=== PATIENT | male | born 1965 | race American Indian/Alaskan Native ===

== ENCOUNTER 2016-06-13 02:35 | Inpatient (IN) | payer BC ==
[2016-06-13 03:57] LABS: Anion Gap 16 mmol/L; BUN/Creatinine Ratio 14.54; Blood Urea Nitrogen 16 mg/dL (9-20); Carbon Dioxide 27 mmol/L (22-30); Chloride 98.3 mmol/L (98-107); Glucose 121 mg/dL (75-100); Potassium 3.8 mmol/L (3.6-5.0); Sodium 137 mmol/L (137-145)
[2016-06-13 04:14] LABS: Basophils % (Auto) 0.8 % (0.0-1.8); Eosinophils % (Auto) 3.5 % (0.0-4.3); Hemoglobin 14.3 gm/dl (11.8-15.2); Mean Corpuscular HGB Conc 32 % (32-34); Mean Corpuscular Hemoglobin 26 pg (28-32); Mean Corpuscular Volume 83 fl (84-94); Platelet Count 190 K/mm3 (140-440); Red Blood Count 5.42 M/mm3 (3.65-5.03); Red Cell Distribution Width 14.8 % (13.2-15.2); White Blood Count 7.1 K/mm3 (4.5-11.0)
[2016-06-13] MEDS ORDERED: NITRO-BID 2% TP ONE (08:27)
[2016-06-13] MEDS ORDERED: ASPIRIN PO ONE (08:27)
[2016-06-13] MEDS ORDERED: LOPRESSOR IV ONE (08:27)
[2016-06-13] MEDS ORDERED: NACL ONE (08:58)
--- NOTE | 2016-06-13 09:43 | Cat Scan Report ---
CT angiography of the chest with 3-D reconstructed images. Findings: There is a round circumscribed hypodensity in the right lobe of the thyroid measuring 1 cm in diameter. A 5 mm round hypodensity is seen in the left lobe of the thyroid. There is a roughly 1.9 cm opacity in the left upper lobe with no air bronchogram. A subcentimeter nodular component is seen at the medial margin of this density. Otherwise the lungs are clear. The multiple nonenlarged nodes are seen in the anterior mediastinum. There is no pleural fluid. Bilateral small nodes are seen in the axilla. On the images which include a portion of the upper abdomen, there is a somewhat rounded hypodensity in the posterior aspect of the right lobe of the liver with inhomogeneous enhancement measuring 2.3 cm in diameter. Impression: 1. No evidence of pulmonary emboli. 2. Left upper lobe consolidation with small nodule, noncalcified. This could represent a malignant or benign inflammatory process. Imaging followup until clear is recommended unless biopsy is indicated on a clinical basis. 3. Bilateral small thyroid nodules. 4. Inhomogeneous enhancing mass in the right lobe of the liver. This is nonspecific, but could represent a hemangioma.
--- NOTE | 2016-06-13 09:47 | Admit Criteria Form ---
Admission Criteria Documentation: CHEST PAIN Clinical Indications for Admission to Inpatient Care (Place 'X' for any and all applicable criteria): Admission is indicated for chest pain and ANY ONE of the following(1)(2)(3)(4)(5 ): [ ]I. Angina with acute coronary syndrome (Also use Myocardial Infarction or Angina guideline) [ ]II. Hemodynamic instability [ ]III. Angina needing acute intervention as indicated by ALL of the following( 11)(12): [ ]a) Unstable angina is present as indicated by angina that is ANY ONE of the following: [ ]i) New onset [ ]ii) Nocturnal [ ]iii) Prolonged at rest [ ]iv) Progressive [ ]b) Angina warrants acute intervention as indicated by ANY ONE of the following: [ ]i) Recurrent angina (e.g, not responding as previously to treatment) [ ]ii) Angina at rest or with low-level activities despite initial medical therapy [ ]iii) New or presumably new ST-segment depression on ECG [ ]iv) Signs or symptoms of heart failure (eg, dyspnea, pulmonary edema) [ ]v) New or worsening mitral regurgitation [ ]vi) Hemodynamic instability [ ]vii) Dangerous arrhythmia (eg, sustained ventricular tachycardia) [ ]viii) History of percutaneous coronary intervention within 6 months [ ]ix) History of coronary artery bypass graft surgery [ ]x) MANOJ risk score of 2 or greater[A] [ ]xi) History of Diabetes(14) [ ]xii) High-risk cardiac ischemia findings on noninvasive testing (e.g, echocardiogram, treadmill testing, nuclear scan) [ ]xiii) Chronic renal insufficiency (ie, estimated GFR less than 60 mL/min/1.732m) [ ]xiv) Left ventricular ejection fraction less than 40% [ ]IV. Evidence of TX (eg, cardiac biomarkers positive, ST-segment elevation on ECG) also use Myocardial Infarction Criteria Form. [ ]V. Pulmonary edema [ ]. Respiratory distress [ ]VII. Chest pain indicative of serious diagnosis other than coronary artery disease (eg, aortic dissection) [ ]VIII. Contraindications and/or Inappropriate clinical situations for Observational Care in patients with Chest Pain, when ANY ONE of the following is required: [ ]a) Patient with risk factor for pulmonary embolism, acute coronary syndrome and myocardial infarction (18) [ ]b) Patient with Pulmonary embolism require an average LOS of 4.3 days, therefore emergency department observation management is inappropriate 18,23 [ ]c) Painful condition/s in the elderly, have the highest rate of recidivism after emergency department observation management (10.8%) 20,21,22 [ ]d) Elevated cardiac biomarker requires intensive and exhaustive care (19) [X ]IX. General contraindications and/or Inappropriate clinical situations for Observational Care in patients with Chest Pain, when ANY ONE of the following is required: [ X]a) Prediction of prolongation of LOS based on ANY ONE of the following may be considered as a contraindication for observational care 2, 3, 4, 5, 6, 7, 8, 9, 10, 11 [ ]i) Age > 65 yrs. [X ]ii) Patient arriving by ambulance [ ]iii) Patient with high acuity [ ]iv) Patient requiring vital sign monitoring [ ]v) Patient on IV medication [ ]b) Systolic blood pressures 180mmHg 3,12 [ ]c) Patient with altered mental status including delirium and other alteration of consciousness, (3) [ ]d) Patient whose discharge disposition will be to a fpc home or rehabilitation home should not be managed in Emergency Department Observation Unit. CMS rule requires 3 days hospital stay before such placement. 3,13 [ ]e) Patient with failure to thrive due to broad array of etiologies 3,16,17 [ ]f) Inability to ambulate 3,14 Extended stay beyond goal length of stay may be needed for (1)(28): [ ]a) Specific condition diagnosed after evaluation (eg, pulmonary embolism, aortic dissection) [ ]b) Unstable angina [ ]c) Continued suspicion of acute coronary syndrome with inability to complete needed cardiac evaluation (eg, patient clinically unable to undergo stress testing) [ ]d) Myocardial infarction (Contents from ANGINA and CHEST PAIN clinical indications for admission to inpatient care have been integrated in this form) The original [facility] content created by [employer] has been revised. The portions of the content which have been revised are identified through the use of italic text or in bold, and [facility] [employer] has neither reviewed nor approved the modified material. All other unmodified content is copyright [facility]. Please see references footnoted in the original [facility] [employer] edition 2016 Admission Criteria Met: Yes
--- NOTE | 2016-06-13 09:52 | XRay Report ---
Chest 2 views: History: Chest pain. Findings: Normal cardiomediastinal silhouette. Trachea is midline. No consolidation, pneumothorax or pleural effusion. Impression: No acute cardiopulmonary findings.
--- NOTE | 2016-06-13 10:43 | Emergency Department Report ---
ED Chest Pain HPI - General Chief Complaint: Chest Pain Stated Complaint: CHEST PAIN Time Seen by Provider: 06/13/16 08:08 Source: patient, EMS Mode of arrival: Ambulatory Limitations: No Limitations - History of Present Illness MD Complaint: chest pain -: Gradual Pain Location: substernal Pain Radiation: RUE Severity: moderate Severity scale (0 -10): 4 Quality: tightness Consistency: intermittent Improves With: nothing Worsens With: nothing re: dyspnea. denies: nausea, vomting, diaphoresis Other Symptoms: denies: cough, fever, syncope Treatments Prior to Arrival: none Aspirin use within the Past 7 Days: (1) Yes - Related Data Home Medications Medication Instructions Recorded Confirmed Last Taken Hydrochlorothiazide [Hctz] 12.5 mg PO QDAY 06/13/16 06/13/16 06/12/16 Lisinopril [Zestril TAB] 10 mg PO QDAY 06/13/16 06/13/16 06/12/16 Allergies Allergy/AdvReac Type Severity Reaction Status Date / Time No Known Allergies Allergy Verified 06/13/16 02:51 MANOJ score - Manoj Score Age > 65: (0) No Aspirin use within the Past 7 Days: (1) Yes 3 or more CAD Risk Factors: (0) No 2 or more Angina events in past 24 hrs: (1) Yes Known CAD with more than 50% Stenosis: (0) No Elevated Cardiac Markers: (0) No ST Deviation Greater than 0.5mm: (0) No MANOJ Score: 2 ED Review of Systems ROS: Stated complaint: CHEST PAIN Other details as noted in HPI Constitutional: denies: chills, fever Eyes: denies: eye pain, eye discharge, vision change ENT: denies: ear pain, throat pain Respiratory: denies: cough, shortness of breath, wheezing Cardiovascular: denies: chest pain, palpitations Endocrine: no symptoms reported Gastrointestinal: denies: abdominal pain, nausea, diarrhea Genitourinary: denies: urgency, dysuria Musculoskeletal: denies: back pain, joint swelling, arthralgia Skin: denies: rash, lesions Neurological: denies: headache, weakness, paresthesias Psychiatric: denies: anxiety, depression Hematological/Lymphatic: denies: easy bleeding, easy bruising ED Past Medical Hx - Past Medical History Previous Medical History?: Yes Hx Hypertension: Yes - Surgical History Past Surgical History?: No - Social History Smoking Status: Never Smoker Substance Use Type: Alcohol - Medications Home Medications: Home Medications Medication Instructions Recorded Confirmed Last Taken Type Hydrochlorothiazide [Hctz] 12.5 mg PO QDAY 06/13/16 06/13/16 06/12/16 History Lisinopril [Zestril TAB] 10 mg PO QDAY 06/13/16 06/13/16 06/12/16 History ED Physical Exam - General Limitations: No Limitations General appearance: alert, in no apparent distress - Head Head exam: Present: atraumatic, normocephalic - ENT ENT exam: Present: mucous membranes moist - Neck Neck exam: Present: normal inspection - Respiratory Respiratory exam: Present: normal lung sounds bilaterally. Absent: respiratory distress - Cardiovascular Cardiovascular Exam: Present: regular rate, normal rhythm. Absent: systolic murmur, diastolic murmur, rubs, gallop - GI/Abdominal GI/Abdominal exam: Present: soft, normal bowel sounds - Extremities Exam Extremities exam: Present: normal inspection - Back Exam Back exam: Present: normal inspection - Skin Skin exam: Present: warm, dry, intact, normal color. Absent: rash ED Course Vital Signs 06/13/16 06/13/16 06/13/16 02:51 08:03 08:47 Temperature 98.5 F Pulse Rate 82 85 83 Respiratory 18 24 20 Rate Blood Pressure Blood Pressure 151/103 136/88 125/83 [Right] O2 Sat by Pulse 100 96 96 Oximetry 06/13/16 06/13/16 06/13/16 08:48 09:05 09:53 Temperature Pulse Rate 83 75 73 Respiratory 22 Rate Blood Pressure 125/83 125/69 120/70 Blood Pressure [Right] O2 Sat by Pulse 94 Oximetry 06/13/16 06/13/16 06/13/16 10:00 11:00 12:00 Temperature Pulse Rate 72 92 H 76 Respiratory 27 H 17 19 Rate Blood Pressure 116/59 112/61 102/66 Blood Pressure [Right] O2 Sat by Pulse 90 100 93 Oximetry 06/13/16 06/13/16 06/13/16 13:00 13:30 14:00 Temperature Pulse Rate 67 75 74 Respiratory 19 18 22 Rate Blood Pressure 103/44 110/72 119/65 Blood Pressure [Right] O2 Sat by Pulse 89 94 92 Oximetry ED Medical Decision Making - Lab Data Result diagrams: 06/13/16 03:25 06/13/16 03:25 - EKG Data EKG shows normal: sinus rhythm Rate: normal - EKG Data When compared to previous EKG there are: no significant change Interpretation: no acute changes - Radiology Data chest ct and cxr negative - Medical Decision Making talk to hospitalist about admitting this patient and get him stress inpatient, doing well , no pain at this time. workup negative so far will need risk stratification as inpatient. likely stress test / enzymes x 3 sets all negative . Critical care time in (mins) excluding proc time.: 35 Critical care attestation.: If time is entered above; I have spent that time in minutes in the direct care of this critically ill patient, excluding procedure time. Critical Care Time: 35 ED Disposition Clinical Impression: Chest pain Disposition: OP ADMITTED IP TO THIS HOSP Is pt being admited?: Yes Does the pt Need Aspirin: Yes Condition: Stable Time of Disposition: 10:42
[2016-06-13] MEDS ORDERED: ZOFRAN IV PRN (12:30)
[2016-06-13] MEDS ORDERED: TYLENOL PO PRN (12:30)
[2016-06-13] MEDS ORDERED: MORPHINE IV PRN (12:30)
[2016-06-13] MEDS ORDERED: MILK OF MAGNESIA PO PRN (12:30)
[2016-06-13] MEDS ORDERED: DULCOLAX PR PRN (12:30)
[2016-06-13] MEDS ORDERED: SODIUM CHLORIDE FLUSH SYRINGE 10 ML IV PRN (12:30)
--- NOTE | 2016-06-13 12:42 | History and Physical Report ---
History of Present Illness Date of admission: 06/13/16 11:48 Chief complaint: chest pain History of present illness: 50m w pmh of htn who presents with CP x 1 day, chest pain. Which is dull subSternal, 4 out of 10, radiates to his right arm. Not associated with exertion or rest. Not associated with eating. He denies having previous episodes of chest pain in the past. 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[employer]) Family history: no significant family history Medications and Allergies Allergies Allergy/AdvReac Type Severity Reaction Status Date / Time No Known Allergies Allergy Verified 06/13/16 02:51 Home Medications Medication Instructions Recorded Confirmed Last Taken Type Hydrochlorothiazide [Hctz] 12.5 mg PO QDAY 06/13/16 06/13/16 06/12/16 History Lisinopril [Zestril TAB] 10 mg PO QDAY 06/13/16 06/13/16 06/12/16 History Active Meds: Active Medications Acetaminophen (Tylenol) 650 mg PO Q4H PRN PRN Reason: Pain MILD(1-3)/Fever >100.5/[place] Aspirin (Ecotrin) 325 mg PO QDAY CHRISTEN Bisacodyl (Dulcolax) 10 mg [place] QDAY PRN PRN Reason: Constipation unrelieved by MOM Enoxaparin Sodium (Lovenox) 40 mg SUB-Q QDAY CHRISTEN Hydrochlorothiazide (Hctz) 12.5 mg PO QDAY CHRISTEN Lisinopril (Zestril) 10 mg PO QDAY CHRISTEN Magnesium Hydroxide (Milk Of Magnesia) 30 ml PO Q4H PRN PRN Reason: Constipation Morphine Sulfate (Morphine) 2 mg IV Q4H PRN PRN Reason: Pain, Moderate (4-6) Ondansetron HCl (Zofran) 4 mg IV Q8H PRN PRN Reason: N/V unrelieved by Reglan Sodium Chloride (Sodium Chloride Flush Syringe 10 Ml) 10 ml IV PRN PRN PRN Reason: LINE FLUSH Review of Systems All systems: negative (as stated in HPI) Exam - Constitutional Vitals: Temp Pulse Resp BP Pulse Ox 98.5 F 92 H 17 112/61 100 06/13/16 02:51 06/13/16 11:00 06/13/16 11:00 06/13/16 11:00 06/13/16 11:00 General appearance: Present: no acute distress, well-nourished - EENT Eyes: Present: PERRL ENT: hearing intact, clear oral mucosa - Neck Neck: Present: supple, normal ROM - Respiratory Respiratory effort: normal Respiratory: bilateral: CTA - Cardiovascular Heart Sounds: Present: S1 & S2. Absent: rub, click - Extremities Extremities: pulses symmetrical, No edema Peripheral Pulses: within normal limits - Abdominal General gastrointestinal: Present: soft, non-tender, non-distended, normal bowel sounds Male genitourinary: Present: normal - Integumentary Integumentary: Present: clear, warm, dry - Musculoskeletal Musculoskeletal: gait normal, strength equal bilaterally - Psychiatric Psychiatric: appropriate mood/affect, intact judgment & insight - Neurologic Neurologic: CNII-XII intact, moves all extremities Results - Labs CBC & Chem 7: 06/13/16 03:25 06/13/16 03:25 Labs: Laboratory Last Values WBC 7.1 K/mm3 (4.5-11.0) 06/13/16 03:25 RBC 5.42 M/mm3 (3.65-5.03) H 06/13/16 03:25 Hgb 14.3 gm/dl (11.8-15.2) 06/13/16 03:25 Hct 45.0 % (35.5-45.6) 06/13/16 03:25 MCV 83 fl (84-94) L 06/13/16 03:25 MCH 26 pg (28-32) L 06/13/16 03:25 MCHC 32 % (32-34) 06/13/16 03:25 RDW 14.8 % (13.2-15.2) 06/13/16 03:25 Plt Count 190 K/mm3 (140-440) 06/13/16 03:25 Lymph % (Auto) 32.2 % (13.4-35.0) 06/13/16 03:25 [place] % (Auto) 10.7 % (0.0-7.3) H 06/13/16 03:25 Eos % (Auto) 3.5 % (0.0-4.3) 06/13/16 03:25 Baso % (Auto) 0.8 % (0.0-1.8) 06/13/16 03:25 Lymph # 2.3 K/mm3 (1.2-5.4) 06/13/16 03:25 [place] # 0.8 K/mm3 (0.0-0.8) 06/13/16 03:25 Eos # 0.2 K/mm3 (0.0-0.4) 06/13/16 03:25 Baso # 0.1 K/mm3 (0.0-0.1) 06/13/16 03:25 Seg Neutrophils % 52.8 % (40.0-70.0) 06/13/16 03:25 Seg Neutrophils # 3.7 K/mm3 (1.8-7.7) 06/13/16 03:25 Sodium 137 mmol/L (137-145) 06/13/16 03:25 Potassium 3.8 mmol/L (3.6-5.0) 06/13/16 03:25 Chloride 98.3 mmol/L (98-107) 06/13/16 03:25 Carbon Dioxide 27 mmol/L (22-30) 06/13/16 03:25 Anion Gap 16 mmol/L 06/13/16 03:25 BUN 16 mg/dL (9-20) 06/13/16 03:25 Creatinine 1.1 mg/dL (0.8-1.5) 06/13/16 03:25 Estimated GFR > 60 ml/min 06/13/16 03:25 BUN/Creatinine Ratio 14.54 % 06/13/16 03:25 Glucose 121 mg/dL (75-100) H 06/13/16 03:25 Calcium 9.0 mg/dL (8.4-10.2) 06/13/16 03:25 Troponin T < 0.010 ng/mL (0.00-0.029) 06/13/16 08:29 - Imaging and Cardiology Chest x-ray: image reviewed (no abnormalities seen) CT scan - abdomen: image reviewed (poorly characterized and homogenous in liver mass) CT scan - chest: image reviewed (left upper lobe mass/consolidation?) Assessment and Plan Assessment and plan: 50-year-old man who presents with chest pain, he was found to have a left upper lobe lung nodule and questionable liver mass on imaging 1. Chest pain Serial troponin to rule out ACS, stress test has been ordered 2. Hypertension BP acceptable continue home medications 3. Liver mass? Obtain triple phase CT to better characterize the liver abnormality 4. Lung nodule versus consolidation Patient's clinical picture does not quite fit with pneumonia,, we'll obtain pulmonary consultation, differential diagnosis include infectious etiology, inflammatory etiology, or malignant etiology. Follow-up triple phase CT of the liver Plan of care discussed with patient/family: Yes
--- NOTE | 2016-06-13 16:04 | Consultation ---
History of Present Illness Consult date: 06/13/16 Requesting physician: RACH GARCIA Reason for consult: lung mass, abnormal CXR/CT History of present illness: PULMONARY/CCM CONSULT NOTE (Full dictation # [id number]) Please see dictated notes for full details Past History Past Medical History: hypertension Medications and Allergies Allergies Allergy/AdvReac Type Severity Reaction Status Date / Time No Known Allergies Allergy Verified 06/13/16 02:51 Home Medications Medication Instructions Recorded Confirmed Last Taken Type Hydrochlorothiazide [Hctz] 12.5 mg PO QDAY 06/13/16 06/13/16 06/12/16 History Lisinopril [Zestril TAB] 10 mg PO QDAY 06/13/16 06/13/16 06/12/16 History Active Meds: Active Medications Acetaminophen (Tylenol) 650 mg PO Q4H PRN PRN Reason: Pain MILD(1-3)/Fever >100.5/[place] Aspirin (Ecotrin) 325 mg PO QDAY CHRISTEN Bisacodyl (Dulcolax) 10 mg [place] QDAY PRN PRN Reason: Constipation unrelieved by MOM Enoxaparin Sodium (Lovenox) 40 mg SUB-Q QDAY CHRISTEN Hydrochlorothiazide (Hctz) 12.5 mg PO QDAY CHRISTEN Lisinopril (Zestril) 10 mg PO QDAY CHRISTEN Magnesium Hydroxide (Milk Of Magnesia) 30 ml PO Q4H PRN PRN Reason: Constipation Morphine Sulfate (Morphine) 2 mg IV Q4H PRN PRN Reason: Pain, Moderate (4-6) Ondansetron HCl (Zofran) 4 mg IV Q8H PRN PRN Reason: N/V unrelieved by Reglan Sodium Chloride (Sodium Chloride Flush Syringe 10 Ml) 10 ml IV PRN PRN PRN Reason: LINE FLUSH Physical Examination Vital signs: Vital Signs Temp Pulse Resp BP Pulse Ox 98.5 F 82 18 151/103 100 06/13/16 02:51 06/13/16 02:51 06/13/16 02:51 06/13/16 02:51 06/13/16 02:51 Results - Laboratory Findings CBC and BMP: 06/13/16 03:25 06/13/16 03:25
[2016-06-14] MEDS ORDERED: LEXISCAN IV ONE ×2 (08:29→09:00)
[2016-06-14] MEDS ORDERED: NACL ONE (10:33)
--- NOTE | 2016-06-14 14:57 | Progress Note ---
Assessment and Plan Assessment and plan: 50-year-old man who presents with chest pain, found to have a left upper lobe lung nodule and questionable liver mass on imaging 1. Chest pain Cardiac enzymes negative EKG with no acute ischemic changes Stress test obtained, results pending Check hemoglobin A1c and lipid profile 2. Hypertension BP controlled on lisinopril, HCTZ 3. Lung nodule versus consolidation Clinical picture not c/w pneumonia Pulmonary consulted and additional workup in progress Differential - inflammatory versus infectious versus malignancy 4. Liver mass Obtain triple phase CT to better characterize the liver abnormality 5. Hyperglycemia Check hemoglobin A1c to differentiate reactive hyperglycemia versus diabetes 6. DVT/GI prophylaxis History Interval history: chest pain subsided, no complaints Hospitalist Physical - Constitutional Vitals: Temp Pulse Resp BP Pulse Ox 98.0 F 86 18 162/81 98 06/14/16 04:00 06/14/16 10:09 06/14/16 04:00 06/14/16 10:09 06/14/16 14:32 General appearance: Present: no acute distress, well-nourished - EENT Eyes: Present: PERRL, EOM intact. Absent: scleral icterus, conjunctival injection - Neck Neck: Present: supple, normal ROM. Absent: masses or JVD - Respiratory Respiratory effort: normal Respiratory: bilateral: CTA, negative: rhonchi, wheezing - Cardiovascular Rhythm: regular Heart Sounds: Present: S1 & S2. Absent: systolic murmur - Extremities Extremities: no ischemia - Abdominal General gastrointestinal: soft, non-tender, non-distended, normal bowel sounds - Integumentary Integumentary: Present: warm, dry. Absent: jaundice, rash - Psychiatric Psychiatric: cooperative - Neurologic Neurologic: CNII-XII intact, no focal deficits Results - Labs CBC & Chem 7: 06/13/16 03:25 06/13/16 03:25 Labs: Laboratory Last Values WBC 7.1 K/mm3 (4.5-11.0) 06/13/16 03:25 RBC 5.42 M/mm3 (3.65-5.03) H 06/13/16 03:25 Hgb 14.3 gm/dl (11.8-15.2) 06/13/16 03:25 Hct 45.0 % (35.5-45.6) 06/13/16 03:25 MCV 83 fl (84-94) L 06/13/16 03:25 MCH 26 pg (28-32) L 06/13/16 03:25 MCHC 32 % (32-34) 06/13/16 03:25 RDW 14.8 % (13.2-15.2) 06/13/16 03:25 Plt Count 190 K/mm3 (140-440) 06/13/16 03:25 Lymph % (Auto) 32.2 % (13.4-35.0) 06/13/16 03:25 [place] % (Auto) 10.7 % (0.0-7.3) H 06/13/16 03:25 Eos % (Auto) 3.5 % (0.0-4.3) 06/13/16 03:25 Baso % (Auto) 0.8 % (0.0-1.8) 06/13/16 03:25 Lymph # 2.3 K/mm3 (1.2-5.4) 06/13/16 03:25 [place] # 0.8 K/mm3 (0.0-0.8) 06/13/16 03:25 Eos # 0.2 K/mm3 (0.0-0.4) 06/13/16 03:25 Baso # 0.1 K/mm3 (0.0-0.1) 06/13/16 03:25 Seg Neutrophils % 52.8 % (40.0-70.0) 06/13/16 03:25 Seg Neutrophils # 3.7 K/mm3 (1.8-7.7) 06/13/16 03:25 D-Dimer 267.97 ng/mlDDU (0-234) H 06/14/16 12:50 Sodium 137 mmol/L (137-145) 06/13/16 03:25 Potassium 3.8 mmol/L (3.6-5.0) 06/13/16 03:25 Chloride 98.3 mmol/L (98-107) 06/13/16 03:25 Carbon Dioxide 27 mmol/L (22-30) 06/13/16 03:25 Anion Gap 16 mmol/L 06/13/16 03:25 BUN 16 mg/dL (9-20) 06/13/16 03:25 Creatinine 1.1 mg/dL (0.8-1.5) 06/13/16 03:25 Estimated GFR > 60 ml/min 06/13/16 03:25 BUN/Creatinine Ratio 14.54 % 06/13/16 03:25 Glucose 121 mg/dL (75-100) H 06/13/16 03:25 Hemoglobin A1c 5.4 % (4-6) 06/14/16 12:50 Calcium 9.0 mg/dL (8.4-10.2) 06/13/16 03:25 Troponin T < 0.010 ng/mL (0.00-0.029) 06/13/16 08:29 Triglycerides 61 mg/dL (2-149) 06/14/16 12:50 Cholesterol 172 mg/dL (50-199) 06/14/16 12:50 LDL Cholesterol Direct 105 mg/dL (50-130) 06/14/16 12:50 HDL Cholesterol 55 mg/dL (40-59) 06/14/16 12:50 Cholesterol/HDL Ratio 3.12 % 06/14/16 12:50 - Imaging and Cardiology CT scan - abdomen: pending CT scan - chest: report reviewed (KAYLA small nodule; bilateral small thyroid nodules; enhancing mass right lobe liver) Imaging and Cardiology: Stest test pending
[2016-06-14] MEDS: HCTZ PO SCH (18:44)
[2016-06-14] MEDS: ECOTRIN PO SCH (18:44)
[2016-06-14] MEDS: ZESTRIL PO SCH (18:44)
[2016-06-14] MEDS: LOVENOX SUB-Q SCH (18:44)
--- NOTE | 2016-06-14 21:50 | Treadmill Report ---
INDICATION FOR PROCEDURE: Chest pain. ORDERING PHYSICIAN: Anuj Bundy MD FINDINGS: There is no scintigraphic evidence of myocardial ischemia. The left ventricle is normal in size and systolic function with the left ventricular ejection fraction measured at 62%. CONCLUSION: 1. Normal perfusion scan. 2. Low risk myocardial perfusion study associated with pneumonia, cardiovascular mortality of less than 1%. JOB# [id number] ANTHONY/NTS
--- NOTE | 2016-06-14 23:24 | Consultation ---
CONSULTING PHYSICIAN: Anuj Bundy MD REASON FOR CONSULTATION: Abnormal CT scan, lung mass, please evaluate. CHIEF COMPLAINT AND HISTORY OF PRESENT ILLNESS: The patient is a 50-year-old -[place] Citizen male with past medical history significant only for high blood pressure came into the Emergency Room yesterday complaining of chest pain that have been going on for about 24 hours. It was over the anterior chest, retrosternal to some extent. It was radiating to his right ____. He did complain of some pleuritic component. He stated that whenever he coughs, he would feel the pain worse. It was not worsened by eating or swallowing. He denied any real fevers or chills. He denied nausea, vomiting, or overt aspiration. He denied any gross or streaky hemoptysis. He denied any prior episodes. He denied also any history of venous thromboembolic phenomenon. He was observed in the Emergency Room and a decision was made to admit him, rule out an acute coronary syndrome; however, he also had a CTA of his chest done, which while negative for pulmonary emboli, reported an abnormal left upper lobe 1.9 cm opacity with no air bronchogram that was suspicious for a lung nodule that was noncalcified, hence the consult. When I stopped by to see him, he was resting in bed, feeling a little bit better. The chest pain was better. He does have a less than 10 pack year tobacco smoking history and tells me that he has quit smoking for a while now. He denied any new lumps, bumps, or swellings on his body. He denied any significant family history of cancer. He has never really had a chest x-ray in the past and certainly has never been told he had an abnormal chest x-ray. When asked about possible connective tissue disease related signs and symptoms, he denied. He certainly denied any known history of sarcoidosis in the family or connective tissue disorders. He denied any significant joint pain or swelling. Denied any significant discoloration of his extremities in cold weather or cold weather related pain or swelling. He denied any significant odynophagia. He denied any chronic oropharyngeal dryness. That really is as much of the history of this presentation as I have. He also denies any occupational exposures to known pulmonary toxins. He did say that in the past he did a lot of hard drugs, but denied significant crack inhalation or other inhalations. PAST MEDICAL HISTORY: Significant again for high blood pressure, he is also obese. PAST SURGICAL HISTORY: Denies. MEDICATIONS: He was on at the time I stopped by to see him, according to the medication administration record included the following: Tylenol 650 mg p.o. q. 4 hours p.r.n., aspirin 325 mg p.o. daily, Lovenox 40 mg subcutaneous daily, hydrochlorothiazide 12.5 mg p.o. daily, Zestril 10 mg p.o. daily, morphine sulfate 2 mg IV q. 4 hours p.r.n. moderate pain, Zofran 4 mg IV q. 8 hours p.r.n. nausea and vomiting, p.r.n. milk of magnesia. ALLERGIES: No known drug allergies. DIET: Obese gentleman. Denies significant weight loss or gain in preceding few weeks to months. FAMILY AND SOCIAL HISTORY: Lives in the community. Less than 10 pack year tobacco smoking history. No current alcohol or illicit drug use or abuse. He does have a history of illicit drug use in the past. FAMILY HISTORY: Unremarkable. REVIEW OF SYSTEMS: No loss of consciousness. No new onset seizures. No new onset focal weakness. No gross hematochezia or melena. No gross hematuria or dysuria. No hematemesis. No hemoptysis. No palpitations. Complete review of systems obtained. Pertinent positives and/or negatives as in body of history above, otherwise they are noncontributory. PHYSICAL EXAMINATION: VITAL SIGNS: At presentation, he was afebrile, temperature 98.5, pulse 82, respiratory rate 18, blood pressure 151/103, oxygen sats were 100%, inspired oxygen concentration was not recorded. HEAD, EYES, EARS, NOSE, AND THROAT: Pupils are equal, round, about 3-4 mm, reactive to light. Extraocular muscle movements are intact. Oropharynx is a Mallampati #3 oropharynx without significant posterior oropharyngeal erythema. Grossly, there were no palpable lymph nodes in the supraclavicular, submandibular, or axillary lymph nodes. LUNGS: Auscultation of both lung calix unremarkable. Lungs were clear bilaterally. HEART: Heart sounds 1 and 2 were heard. There were regular rate and rhythm at the time of my evaluation. ABDOMEN: Soft, full, bowel sounds were positive, nontender. EXTREMITIES: Without overt digital clubbing, cyanosis, or pedal edema. NEUROLOGIC: The exam was grossly nonfocal. LABORATORY DATA: From my review are as follows: White cell count 7100, hemoglobin 14.3, hematocrit 45.0, platelets 190. Serum sodium 137, potassium 3.8, chloride 98, bicarbonate 27, BUN 16, creatinine 1.1, and glucose of 121. Cardiac enzymes have been negative so far. No microbiology studies. I have reviewed the CT scan. I have also reviewed the radiologist's report. I should mention that the CT scan shows obvious motion artifact. The patient was breathing during the exam and this obscures the interpretation of the films really with confluence of shadows and so multiple lesions could appear at one. I do note the left upper lobe area in question; however, it is hard to say if this is really vasculature that has been obscured by the motion of the chest wall or the pulmonary parenchyma, there probably does appear to be something else going on in that area, it could just be consolidation certainly. I do not see any significant mediastinal adenopathy, no gross pneumothorax. ASSESSMENT AND PLAN: We have a middle-aged gentleman, less than 10 pack year smoker, coming in with chest pain and history of hypertension, certainly, does require acute coronary syndrome workup. From a respiratory standpoint, I will want to do a couple of things, first of all I will get a stat D-dimer level and if positive, I will complete the venous thromboembolic disorder workup with bilateral lower extremity Dopplers. I have explained the findings on his chest to him. I am not so certain a biopsy is indicated at this time. I will elect to treat him empirically for 5 days with Levaquin for possible community-acquired pneumonia, and then, I suggest that we should go with a PET scan and see if there is any true indication to go after this lesion. At that point, a decision can be made on biopsy or not. I am not so sure that the benefits outweigh the risks at this point, especially in the setting of a possible acute coronary syndrome. I have counseled continued tobacco abstinence. He will be placed on GI prophylaxis and flu and pneumonia vaccination should be per protocol. I should mention I will get an YOVANA level as a connective tissue disease screen and also an angiotensin converting enzyme level as a surrogate marker for sarcoidosis. Thank you very much for the consult, Dr. Bundy. We will follow along. We will make further recommendations as picture progresses/becomes clearer. JOB# [id number] LUIS/GINNY
[2016-06-15] MEDS: ECOTRIN PO SCH (09:47)
[2016-06-15] MEDS: HCTZ PO SCH (09:47)
[2016-06-15] MEDS: LOVENOX SUB-Q SCH (09:48)
[2016-06-15] MEDS: ZESTRIL PO SCH (09:48)
[2016-06-15] MEDS ORDERED: PEPCID PO SCH (10:00)
--- NOTE | 2016-06-15 13:30 | Progress Note ---
Assessment and Plan - Patient Problems (1) Lung nodule Current Visit: Yes Status: Acute Plan to address problem: - follow YOVANA, ANDREW levels - needs PET scan - will review films with radiology (2) Chest pain Current Visit: Yes Status: Acute Qualifiers: Chest pain type: C Plan to address problem: - negative VTE w/up - clinically improved - complete ACS w/up Subjective Date of service: 06/15/16 Principal diagnosis: Atypical Chest Pain; Lung Nodule Interval history: Seen and examined at bedside; 24 hour events reviewed; nursing and respiratory care staff consulted; no adverse overnight events reported to me; no new issues respiratory-jiménez; awaiting YOVANA & ANDREW levels; no hemoptysis Objective Vital Signs - 12hr 06/15/16 06/15/16 06/15/16 04:00 08:23 11:22 Temperature 98.1 F 97.5 F L Pulse Rate 60 Pulse Rate [ 65 59 L From Monitor] Respiratory 18 18 Rate Blood Pressure 125/72 126/68 [Right Arm] O2 Sat by Pulse 95 97 98 Oximetry Constitutional: no acute distress Eyes: non-icteric ENT: oropharynx moist Neck: supple, no lymphadenopathy Effort: normal Ascultation: Bilateral: clear Cardiovascular: regular rate and rhythm Gastrointestinal: normoactive bowel sounds, soft, non-tender, non-distended Integumentary: normal Extremities: no cyanosis, no edema, pulses normal, no ischemia or petechiae Neurologic: normal mental status, non-focal exam, pupils equal and round, motor strength normal and Psychiatric: mood appropriate, affect normal CBC and BMP: 06/13/16 03:25 06/13/16 03:25 ABG, PT/INR, D-dimer: PT/INR, D-dimer D-Dimer 267.97 ng/mlDDU (0-234) H 06/14/16 12:50 Abnormal lab findings: Abnormal Labs 06/14/16 12:50 D-Dimer 267[address] scan - chest: image reviewed
--- NOTE | 2016-06-15 14:57 | Progress Note ---
Assessment and Plan Assessment and plan: 50-year-old man who presents with chest pain, found to have a left upper lobe lung nodule and questionable liver mass on imaging 1. Chest pain Cardiac enzymes negative EKG with no acute ischemic changes A1C and lipid profile wnl Stress test negative Not cardiac - additional pulm w/u in progress 2. Hypertension BP controlled on lisinopril, HCTZ 3. Lung nodule versus consolidation Clinical picture not c/w pneumonia Differential - inflammatory versus infectious versus malignancy Pulmonary consulted and ddimer, bilat LE Doppler obtained and DVT ruled out; considering PET scan; YOVANA and ANDREW pending 4. Liver mass Obtain triple phase CT to better characterize the liver abnormality 5. Hyperglycemia Reactive, A1C 5.4 6. DVT/GI prophylaxis 7. Discharge plan Based on pulm w/u and recom History Interval history: doing well, no complaints Hospitalist Physical - Constitutional Vitals: Temp Pulse Resp BP Pulse Ox 97.5 F L 59 L 18 126/68 98 06/15/16 11:22 06/15/16 11:22 06/15/16 11:22 06/15/16 11:22 06/15/16 11:22 General appearance: Present: no acute distress, well-nourished - EENT Eyes: Present: PERRL, EOM intact. Absent: scleral icterus, conjunctival injection - Neck Neck: Present: supple, normal ROM. Absent: masses or JVD - Respiratory Respiratory effort: normal Respiratory: bilateral: CTA, negative: rhonchi, wheezing - Cardiovascular Rhythm: regular Heart Sounds: Present: S1 & S2. Absent: systolic murmur - Extremities Extremities: no ischemia, No edema - Abdominal General gastrointestinal: soft, non-tender, non-distended, normal bowel sounds - Integumentary Integumentary: Present: warm, dry. Absent: jaundice, rash - Psychiatric Psychiatric: cooperative - Neurologic Neurologic: CNII-XII intact, no focal deficits Results - Labs CBC & Chem 7: 06/13/16 03:25 06/13/16 03:25 Labs: Laboratory Last Values WBC 7.1 K/mm3 (4.5-11.0) 06/13/16 03:25 RBC 5.42 M/mm3 (3.65-5.03) H 06/13/16 03:25 Hgb 14.3 gm/dl (11.8-15.2) 06/13/16 03:25 Hct 45.0 % (35.5-45.6) 06/13/16 03:25 MCV 83 fl (84-94) L 06/13/16 03:25 MCH 26 pg (28-32) L 06/13/16 03:25 MCHC 32 % (32-34) 06/13/16 03:25 RDW 14.8 % (13.2-15.2) 06/13/16 03:25 Plt Count 190 K/mm3 (140-440) 06/13/16 03:25 Lymph % (Auto) 32.2 % (13.4-35.0) 06/13/16 03:25 Jenkins % (Auto) 10.7 % (0.0-7.3) H 06/13/16 03:25 Eos % (Auto) 3.5 % (0.0-4.3) 06/13/16 03:25 Baso % (Auto) 0.8 % (0.0-1.8) 06/13/16 03:25 Lymph # 2.3 K/mm3 (1.2-5.4) 06/13/16 03:25 Jenkins # 0.8 K/mm3 (0.0-0.8) 06/13/16 03:25 Eos # 0.2 K/mm3 (0.0-0.4) 06/13/16 03:25 Baso # 0.1 K/mm3 (0.0-0.1) 06/13/16 03:25 Seg Neutrophils % 52.8 % (40.0-70.0) 06/13/16 03:25 Seg Neutrophils # 3.7 K/mm3 (1.8-7.7) 06/13/16 03:25 D-Dimer 267.97 ng/mlDDU (0-234) H 06/14/16 12:50 Sodium 137 mmol/L (137-145) 06/13/16 03:25 Potassium 3.8 mmol/L (3.6-5.0) 06/13/16 03:25 Chloride 98.3 mmol/L (98-107) 06/13/16 03:25 Carbon Dioxide 27 mmol/L (22-30) 06/13/16 03:25 Anion Gap 16 mmol/L 06/13/16 03:25 BUN 16 mg/dL (9-20) 06/13/16 03:25 Creatinine 1.1 mg/dL (0.8-1.5) 06/13/16 03:25 Estimated GFR > 60 ml/min 06/13/16 03:25 BUN/Creatinine Ratio 14.54 % 06/13/16 03:25 Glucose 121 mg/dL (75-100) H 06/13/16 03:25 Hemoglobin A1c 5.4 % (4-6) 06/14/16 12:50 Calcium 9.0 mg/dL (8.4-10.2) 06/13/16 03:25 Troponin T < 0.010 ng/mL (0.00-0.029) 06/13/16 08:29 Triglycerides 61 mg/dL (2-149) 06/14/16 12:50 Cholesterol 172 mg/dL (50-199) 06/14/16 12:50 LDL Cholesterol Direct 105 mg/dL (50-130) 06/14/16 12:50 HDL Cholesterol 55 mg/dL (40-59) 06/14/16 12:50 Cholesterol/HDL Ratio 3.12 % 06/14/16 12:50
[2016-06-16 09:28] VITALS: BP 124/67
--- NOTE | 2016-06-16 11:14 | Cat Scan Report ---
CT SCAN OF THE ABDOMEN AND PELVIS WITHOUT AND WITH CONTRAST: HISTORY: Liver mass. TECHNIQUE: Helical CT before and after IV contrast. Sagittal and coronal reformatted images. Triple phase liver protocol. FINDINGS: The CTA chest dated 06/13/16 was reviewed. The 3.3 cm right hepatic lobe lesion demonstrates peripheral nodular enhancement with near-complete filling on the delayed images. This is typical of a cavernous hemangioma with type II enhancement pattern. The remainder of the liver is normal attenuation. No parenchymal disease or additional mass. The hepatic vasculature is patent. The biliary system is unremarkable. The spleen and pancreas demonstrate a normal size and attenuation with no evidence of abnormal mass. The kidneys are normal in size and position with no evidence of hydronephrosis or mass. 1 cm simple cyst of the mid right kidney is noted. The adrenal glands are normal. There is no intestinal obstruction or ascites. The abdominal aorta is normal. No abnormalities are identified within the retroperitoneum or mesentery. There is no evidence of peritoneal air or fluid. There is no evidence of any abnormal masses or fluid collections within the pelvis. No adenopathy is identified. The bladder is normal. IMPRESSION: 3.3 cm cavernous hemangioma of the right hepatic lobe. No suspicious liver mass. Otherwise, unremarkable exam of the abdomen and pelvis.
--- NOTE | 2016-06-16 13:24 | Progress Note ---
Assessment and Plan - Patient Problems (1) Lung nodule Current Visit: Yes Status: Acute Plan to address problem: - follow YOVANA, ANDREW levels - needs PET scan - set up outpatient PET scan pre-discharge - outpatient f/up in [address] Fernández (2) Chest pain Current Visit: Yes Status: Acute Qualifiers: Chest pain type: C Plan to address problem: - negative VTE w/up - clinically improved - complete ACS w/up DISCHARGE PLANNING: - I have stressed the importance of f/up to Mr. Tamez indicating that the lung nodule could be a lung cancer and can kill him if he does not follow up on the scheduled PET scan and the outpatient clinic f/up. Same has been re-iterated to him by his nurse and attending physician 1. schedule PET JUS 2. give outpatient pulmonary clinic f/up with Dr. Fernández in 1 week Subjective Date of service: 06/16/16 Principal diagnosis: Atypical Chest Pain; Lung Nodule Interval history: Seen and examined at bedside; 24 hour events reviewed; nursing and respiratory care staff consulted; no adverse overnight events reported to me; resting in bed ; denies acute chest pains or increased SOB; wants to go home; No N/V/F/C Objective Vital Signs - 12hr 06/16/16 06/16/16 06/16/16 01:58 04:30 08:00 Temperature 98.4 F 98.0 F 98.4 F Pulse Rate [ 60 Apical] Pulse Rate [ 75 57 L Left Radial] Respiratory 20 20 18 Rate Blood Pressure 119/63 107/57 124/67 [Left Arm] O2 Sat by Pulse 97 97 98 Oximetry Constitutional: no acute distress Eyes: non-icteric ENT: oropharynx moist Neck: supple, no lymphadenopathy Effort: normal Ascultation: Bilateral: clear Cardiovascular: regular rate and rhythm Gastrointestinal: normoactive bowel sounds, soft, non-tender, non-distended Integumentary: normal Extremities: no cyanosis, no edema, pulses normal, no ischemia or petechiae Neurologic: normal mental status, non-focal exam, pupils equal and round, motor strength normal and Psychiatric: mood appropriate, affect normal CBC and BMP: 06/13/16 03:25 06/13/16 03:25 ABG, PT/INR, D-dimer: PT/INR, D-dimer D-Dimer 267.97 ng/mlDDU (0-234) H 06/14/16 12:50 Abnormal lab findings: Abnormal Labs 06/14/16 12:50 D-Dimer 267.97 H
--- NOTE | 2016-06-16 15:43 | Discharge Summary ---
Providers - Providers Date of Admission: 06/13/16 11:48 Date of discharge: 06/16/16 Attending physician: DANELLE LANDRY 06/13/16 Consult to Cardiac Rehabilitation [CONS] Routine Reason For Exam: Phase I 06/13/16 12:34 Consult to Physician [CONS] Routine Consulting Provider: BROOKS CERVANTES Reason For Exam: Left upper lobe nodule? Place consult to:: tyra Notified:: yes Was contact made?: Yes If yes, spoke with:: yolanda Time called:: 14:16 Primary care physician: DIFFERENTIAL REPAIRER Hospitalization Reason for admission: chest pain Condition: Stable Pertinent studies: CXR CTA chest CT abdomen/pelvis Stress test Doppler lower extremities Hospital course: Patient is a 50 years old -[place] male with hypertension who presented to the hospital complaining of chest pain. Acute coronary syndrome was excluded based on normal cardiac enzymes and negative stress test. Because d- dimer was elevated he underwent bilateral lower extremity Doppler CTA chest that showed no DVT/SVT, as well as, no PE, but incidental findings noted - lung nodule, bilateral small thyroid nodules and liver mass; additional CT abdomen/ pelvis obtained and liver mass excluded, cavernous hemangioma being present. Pulmonary was consulted and additional workup ordered; differential for his lung nodule is inflammatory versus infectious versus malignancy; YOVANA and ANDREW pending. Also he is scheduled for outpatient PET scan, test requested by pulmonary before any invasive procedure, then he will f/u with Dr. Fernández. He was also advised to follow with an wardrobe custodian of his choice regarding the thyroid nodules. Discharge diagnosis: 1. Chest pain - ACS and PE excluded; possible musculoskeletal 2. Lung nodule - scheduled for PET scan and then will follow up with pulmonary 3. Right hepatic lobe hemangioma 4. Bilateral thyroid nodules - TSH and FT4 within normal limits; follow-up with endocrinology 5. Hypertension - BP controlled on lisinopril HCTZ 6. Hyperglycemia - reactive 7. Obesity - consult regarding importance of losing weight and lifestyle changes Disposition: DISCHARGED TO HOME OR SELFCARE Time spent for discharge: 35 min Core Measure Documentation - Palliative Care Palliative Care/ Comfort Measures: Not Applicable - Core Measures Any of the following diagnoses?: none Exam - Physical Exam Narrative exam: Patient seen and examined; - Constitutional Vitals: Temp Pulse Resp BP Pulse Ox 98.4 F 60 18 124/67 98 06/16/16 08:00 06/16/16 08:00 06/16/16 08:00 06/16/16 08:00 06/16/16 08:00 General appearance: Present: no acute distress - EENT Eyes: Present: PERRL, EOM intact. Absent: scleral icterus, conjunctival injection - Neck Neck: Present: supple, normal ROM. Absent: masses or JVD - Respiratory Respiratory effort: normal Respiratory: bilateral: CTA, negative: rales, rhonchi, wheezing - Cardiovascular Rhythm: regular Heart Sounds: Present: S1 & S2. Absent: systolic murmur - Extremities Extremities: no ischemia, No edema - Abdominal General gastrointestinal: Present: soft, non-tender, non-distended, normal bowel sounds - Integumentary Integumentary: Present: warm, dry. Absent: jaundice, rash - Musculoskeletal Musculoskeletal: strength equal bilaterally - Psychiatric Psychiatric: cooperative - Neurologic Neurologic: CNII-XII intact, no focal deficits Plan Activity: no restrictions Diet: low cholesterol, low salt Additional Instructions: PET scan as scheduled, then follow up with Pulmonary. Follow up with an wardrobe custodian of your choice regarding thyroid nodules Follow up with: ALEYDA OLIVO MD [Primary Care Provider] - 3-5 Days MERY FERNÁNDEZ MD [Staff Physician] - 7 Days Forms: Work/School Release Form
--- NOTE | 2016-06-17 07:57 | Vascular Lab Report ---
LOWER EXTREMITY VENOUS DUPLEX: REASON FOR EXAM: Swelling of the lower extremities. COMMENTS ON THE RIGHT: All veins visualized are freely compressible without evidence of internal echogenicity. Flow is spontaneous and phasic throughout. COMMENTS ON THE LEFT: All veins visualized are freely compressible without evidence of internal echogenicity. Flow is spontaneous and phasic throughout. IMPRESSION: No evidence of acute or chronic deep venous thrombosis in either lower extremity.
== END 2016-06-16 16:56 | disposition home or self-care (01) | DRG 313 ==
LOC: ED 02:35 → 4A 11:48
PROVIDERS: ADMIT Internal Medicine; ATTEND Internal Medicine
DX: R07.89 Other chest pain (principal); I10 Essential (primary) hypertension; R16.0 Hepatomegaly, not elsewhere classified; R91.1 Solitary pulmonary nodule; R73.9 Hyperglycemia, unspecified; E66.9 Obesity, unspecified; E04.2 Nontoxic multinodular goiter; Z79.899 Other long term (current) drug therapy; Z68.31 Body mass index [BMI] 31.0-31.9, adult
CPT/HCPCS: 36415; 71020; 71275; 74178; 78452; 80048; 80061; 82164; 83036; 84439; 84443; 84484; 85025; 85379; 86038; 93005; 93010; 93017; 93970; A9502; J1650; J2785; Q9967

== ENCOUNTER 2018-04-13 20:40 | Emergency (ER) | payer BC, OTHER ==
[2018-04-14] MEDS ORDERED: TORADOL IM ONE (00:07)
[2018-04-14] MEDS ORDERED: IBUPROFEN ONE (01:19)
--- NOTE | 2018-04-14 01:23 | Emergency Department Report ---
ED Back Pain/Injury HPI - General Chief Complaint: Back Pain/Injury Stated Complaint: LOWER BACK PAIN Time Seen by Provider: 04/14/18 00:07 Source: patient Limitations: No Limitations - History of Present Illness Initial Comments: pt is a 52 y/o aam with hx of low back pain who presents for chronic low back pain no new fall injury or trauma pain requesting pain medication. states is no longer follow by pcp due to lack of insurance. 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 MD Complaint: back pain Onset/Timin -: week(s) Similar Symptoms Previously: Yes Place: home Radiation: left leg, right leg Severity: moderate Severity scale (0 -10): 4 Quality: aching Consistency: intermittent Improves With: other (nsaids rest) Worsens With: movement (prolonged sitting standing ) Context: turning/twisting Associated Symptoms: denies: weakness, numbness, difficulty walking, difficulty urinating, incontinence, fever/chills, constipation, rash - Related Data Home Medications Medication Instructions Recorded Confirmed Last Taken Lisinopril [Zestril TAB] 10 mg PO QDAY 06/13/16 06/13/16 06/12/16 hydroCHLOROthiazide [Hctz] 12.5 mg PO QDAY 06/13/16 06/13/16 06/12/16 Previous Rx's Medication Instructions Recorded Last Taken Type Cyclobenzaprine [Flexeril] 10 mg PO TID PRN #30 tablet 04/14/18 Unknown Rx Menthol/Camphor [[facility] 1 applicatio TP QID PRN #1 tube 04/14/18 Unknown Rx Ointment] Naproxen 500 mg PO BID PRN #30 tablet 04/14/18 Unknown Rx Allergies Allergy/AdvReac Type Severity Reaction Status Date / Time No Known Allergies Allergy Verified 06/13/16 02:51 ED Review of Systems ROS: Stated complaint: LOWER BACK PAIN Other details as noted in HPI Constitutional: denies: chills, fever Eyes: denies: eye pain, eye discharge, vision change ENT: denies: ear pain, throat pain Respiratory: denies: cough, shortness of breath, wheezing Cardiovascular: denies: chest pain, palpitations Endocrine: no symptoms reported Gastrointestinal: denies: abdominal pain, nausea, diarrhea Genitourinary: denies: urgency, dysuria Musculoskeletal: back pain, arthralgia Skin: denies: rash, lesions Neurological: denies: headache, weakness, paresthesias Psychiatric: denies: anxiety, depression Hematological/Lymphatic: denies: easy bleeding, easy bruising ED Past Medical Hx - Past Medical History Hx Hypertension: Yes - Surgical History Past Surgical History?: No - Social History Smoking Status: Never Smoker Substance Use Type: Alcohol - Medications Home Medications: Home Medications Medication Instructions Recorded Confirmed Last Taken Type Lisinopril [Zestril TAB] 10 mg PO QDAY 06/13/16 06/13/16 06/12/16 History hydroCHLOROthiazide [Hctz] 12.5 mg PO QDAY 06/13/16 06/13/16 06/12/16 History Cyclobenzaprine [Flexeril] 10 mg PO TID PRN #30 tablet 04/14/18 Unknown Rx Menthol/Camphor [[facility] 1 applicatio TP QID PRN #1 tube 04/14/18 Unknown Rx Ointment] Naproxen 500 mg PO BID PRN #30 tablet 04/14/18 Unknown Rx ED Physical Exam - General Limitations: No Limitations General appearance: alert, in no apparent distress - Head Head exam: Present: atraumatic, normocephalic - Eye Eye exam: Present: normal appearance - ENT ENT exam: Present: mucous membranes moist - Neck Neck exam: Present: normal inspection, full ROM. Absent: tenderness, meningismus, lymphadenopathy, thyromegaly - Respiratory Respiratory exam: Present: normal lung sounds bilaterally. Absent: respiratory distress - Cardiovascular Cardiovascular Exam: Present: regular rate, normal rhythm, normal heart sounds. Absent: systolic murmur, diastolic murmur, rubs, gallop - GI/Abdominal GI/Abdominal exam: Present: soft, normal bowel sounds. Absent: tenderness, bruit, hernia - Rectal Rectal exam: Present: deferred - Extremities Exam Extremities exam: Present: normal inspection, full ROM, normal capillary refill. Absent: tenderness, pedal edema, joint swelling - Back Exam Back exam: Present: normal inspection, full ROM, muscle spasm, rash noted. Absent: tenderness, CVA tenderness (R), CVA tenderness (L), paraspinal tenderness, vertebral tenderness - Expanded Back Exam Expanded Back exam: Present: other (no posterior vertebral point tendreness). Absent: saddle anesthesia Back exam: Positive Straight Leg Raise: Left, Right - Neurological Exam Neurological exam: Present: alert, oriented X3, CN II-XII intact, normal gait, reflexes normal. Absent: motor sensory deficit - Expanded Neurological Exam Expanded Patient oriented to: Present: person, place, time Speech: Present: fluid speech Cranial nerves: EOM's Intact: Normal, Gag Reflex: Normal, Tongue Deviation: Normal, Nystagmus: Normal, Facial Sensation: Normal Cerebellar function: Finger to Nose: Normal, Heel to [place]: Normal, Romberg: Normal Upper motor neuron: Arnaud Neglect: Normal, Pronator Drift: Normal, Babinski Sign: Normal, Sensory Extinction: Normal Sensory exam: Upper Extremity Light Touch: Normal, Upper Extremity Pin Prick: Normal, Upper Extremity Temperature: Normal, UE 2 Point Discrimination: Normal, Lower Extremity Light Touch: Normal, Lower Extremity Pin Prick: Normal, Lower Extremity Temperature: Normal, LE 2 Point Discrimination: Normal Motor strength exam: RUE: 5, LUE: 5, RLE: 5, LLE: 5 DTR: knee (R): 2+, knee (L): 2+, ankle (R): 2+, ankle (L): 2+ Best Eye Response ([place]): (4) open spontaneously Best Motor Response ([place]): (6) obeys commands Best Verbal Response ([place]): (5) oriented Hector Total: 15 - Psychiatric Psychiatric exam: Present: normal affect, normal mood - Skin Skin exam: Present: warm, dry, intact, normal color. Absent: rash ED Course Vital Signs 04/13/18 04/13/18 20:44 20:51 Temperature 98.3 F 98.3 F Pulse Rate 60 58 L Respiratory 18 18 Rate Blood Pressure 149/96 149/96 O2 Sat by Pulse 98 98 Oximetry ED Medical Decision Making - Radiology Data Radiology results: report reviewed, image reviewed - Medical Decision Making this acute on chronic back pain , improved with medications given in ed plan: refill naproxen flexeril tiger balm follow referral to orthopedics Dr Ortega in 2-3 days pt verbalized aggreement and understanding of same. Critical care attestation.: If time is entered above; I have spent that time in minutes in the direct care of this critically ill patient, excluding procedure time. ED Disposition Clinical Impression: Chronic back pain Qualifiers: Back pain location: low back pain Back pain laterality: bilateral Sciatica presence: with sciatica Sciatica laterality: sciatica laterality unspecified Qualified Code(s): M54.40 - Lumbago with sciatica, unspecified side; G89.29 - Other chronic pain Disposition: TO HOME OR SELFCARE Is pt being admited?: No Does the pt Need Aspirin: No Condition: Stable Instructions: Low Back Strain (ED), Chronic Back Pain (ED) Prescriptions: Cyclobenzaprine [Flexeril] 10 mg PO TID PRN #30 tablet PRN Reason: Muscle Spasm Menthol/Camphor [[facility] Ointment] 1 applicatio TP QID PRN #1 tube PRN Reason: Pain , Severe (7-10) Naproxen 500 mg PO BID PRN #30 tablet PRN Reason: pain Referrals: RAQUEL ORTEGA MD [Staff Physician] - 3-5 Days Forms: Work/School Release Form(ED) Time of Disposition: 01:23
[2018-04-14] MEDS ORDERED: IBUPROFEN PO ONE (01:24)
[2018-04-14 01:42] VITALS: BP 142/95
== END 2018-04-14 01:45 | disposition home or self-care (01) ==
LOC: ED 20:40
DX: M54.40 Lumbago with sciatica, unspecified side (principal); G89.29 Other chronic pain; I10 Essential (primary) hypertension
CPT/HCPCS: 99282; J1885